=== PATIENT | male | born 1955 | race Caucasian/White ===

== ENCOUNTER 2021-03-15 10:55 | Inpatient (IN) | payer MEDICARE, OTHER ==
[~2021-03-15] VITALS: Ht 172.7 cm; Wt 63.5 kg
[~2021-03-15 10:55] MED LIST: PERCOCET 5/325 T1 EA PO; VIAGRA25 MG PO
[2021-03-15 11:16] LABS: HEMOGLOBIN 14.2 gm/dl (14.0-17.5); RED BLOOD COUNT 3.89 M/UL (4.20-5.50)
[2021-03-15 11:52] LABS: BUN/CREATININE RATIO 14 (0-10)
[2021-03-15] MEDS ORDERED: SILDENAFIL20 MG PO (15:14)
[2021-03-15] MEDS ORDERED: TYLENOL325 MG PO (17:47)
[2021-03-16 03:04] LABS: WHITE BLOOD COUNT 10.9 K/UL (4.5-11.0)
[2021-03-16 03:06] LABS: RED BLOOD COUNT 3.34 M/UL (4.20-5.50)
[2021-03-16 03:21] LABS: BUN/CREATININE RATIO 13 (0-10)
[2021-03-16] MEDS ORDERED: MAG-OX 400 TAB400 MG PO (14:48)
[2021-03-16] MEDS ORDERED: VITAMIN B-1100 M1 PO (14:48)
[2021-03-16] MEDS ORDERED: VENTOLIN HFA 66.7 GM INH (14:48)
[2021-03-16] MEDS ORDERED: TAB-A-VITE TA400 MC1 PO (14:48)
[2021-03-16] MEDS ORDERED: BACTRIM DS TAB1 EACH PO (14:48)
[2021-03-17 03:05] LABS: HEMOGLOBIN 11.7 gm/dl (14.0-17.5); RED BLOOD COUNT 3.23 M/UL (4.20-5.50)
[2021-03-17 03:07] LABS: WHITE BLOOD COUNT 6.9 K/UL (4.5-11.0)
[2021-03-17 03:31] LABS: BUN/CREATININE RATIO 8 (0-10)
[2021-03-18 04:35] LABS: HEMOGLOBIN 11.1 gm/dl (14.0-17.5); RED BLOOD COUNT 3.09 M/UL (4.20-5.50); WHITE BLOOD COUNT 6.4 K/UL (4.5-11.0)
[2021-03-18 04:52] LABS: BUN/CREATININE RATIO 6 (0-10)
[2021-03-19 03:41] LABS: HEMOGLOBIN 11.2 gm/dl (14.0-17.5); RED BLOOD COUNT 3.17 M/UL (4.20-5.50); WHITE BLOOD COUNT 6.3 K/UL (4.5-11.0)
[2021-03-19 04:00] LABS: BUN/CREATININE RATIO 5 (0-10)
[2021-03-19] MEDS ORDERED: VANCOCIN 125 M125 MG PO ×2 (08:59→10:34)
[2021-03-20 07:29] LABS: HEMOGLOBIN 10.8 gm/dl (14.0-17.5); RED BLOOD COUNT 3.18 M/UL (4.20-5.50); WHITE BLOOD COUNT 6.9 K/UL (4.5-11.0)
[2021-03-20 08:08] LABS: BUN/CREATININE RATIO 9 (0-10)
== END 2021-03-20 14:35 | disposition home or self-care (01) | DRG 871 ==
LOC: ER1 10:55 → PROG CARE 14:24 → CDU 14:24 → PROG CARE 19:19
PROVIDERS: Emergency Medicine; Internal Medicine; Physician Assistant Medical; ADMIT Internal Medicine
DX: A41.4 Sepsis due to anaerobes (principal); J18.0 Bronchopneumonia, unspecified organism; F10.139 Alcohol abuse with withdrawal, unspecified; J98.11 Atelectasis; N30.00 Acute cystitis without hematuria; E87.2 Acidosis; R00.0 Tachycardia, unspecified; N31.9 Neuromuscular dysfunction of bladder, unspecified; R53.1 Weakness; M48.061 Spinal stenosis, lumbar region without neurogenic claudication; D64.9 Anemia, unspecified; E87.6 Hypokalemia; Z20.822 Contact with and (suspected) exposure to COVID-19; E83.51 Hypocalcemia; F17.210 Nicotine dependence, cigarettes, uncomplicated; S52.501D Unspecified fracture of the lower end of right radius, subsequent encounter for closed fracture with routine healing
CPT/HCPCS: 0240U; 36415; 71045; 73100; 80048; 80053; 80202; 80307; 81001; 82550; 82553; 83605; 83690; 83735; 84132; 84439; 84443; 84484; 85025; 85027; 85379; 85610; 85730; 87040; 87086; 87324; 87449; 93005; 93970; 94640; 94760; 96374; 96375; 96376; 97161; 99285; J0696; J1335; J1650; J2060; J2185; J3370; J3475; J7030; J7070; Q9967

== ENCOUNTER 2021-08-31 13:19 | Emergency (ER) | payer MEDICARE, OTHER ==
[~2021-08-31 13:19] MED LIST changes: +BACTRIM DS TAB1 EACH PO; +MAG-OX 400 TAB400 MG PO; +SILDENAFIL20 MG PO; +TAB-A-VITE TA400 MC1 PO; +TYLENOL325 MG PO; +VANCOCIN 125 M125 MG PO; +VENTOLIN HFA 66.7 GM INH; +VITAMIN B-1100 M1 PO
== END 2021-08-31 17:02 | disposition home or self-care (01) ==
LOC: ER1 13:19
DX: R09.81 Nasal congestion (principal); F17.210 Nicotine dependence, cigarettes, uncomplicated; Z20.822 Contact with and (suspected) exposure to COVID-19
CPT/HCPCS: 99283; U0002

== ENCOUNTER 2021-11-30 09:38 | Emergency (ER) | payer MEDICARE ==
[2021-11-30 10:43] LABS: HEMOGLOBIN 12.8 gm/dl (14.0-17.5); RED BLOOD COUNT 3.91 M/UL (4.20-5.50); WHITE BLOOD COUNT 5.2 K/UL (4.5-11.0)
[2021-11-30 11:01] LABS: BUN/CREATININE RATIO 9 (0-10)
== END 2021-11-30 12:10 | disposition home or self-care (01) ==
LOC: ER1 09:38
PROVIDERS: Physician Assistant
DX: E87.6 Hypokalemia (principal); R19.7 Diarrhea, unspecified
CPT/HCPCS: 80053; 85025; 99284